=== PATIENT | female | born 1985 | race African-American/Black ===

== ENCOUNTER 2016-05-17 06:45 | Emergency (ER) | payer MEDICAID ==
[2016-05-17 07:08] VITALS: PULSE 72; TEMP 97.7; BMI 31.5
--- NOTE | 2016-05-17 07:53 | EDPRACDOC ---
- General Information Chief Complaint: Chest Wall Pain Stated Complaint: RT SIDE PAIN WHEN BREATHING Time Seen by Provider: 05/17/16 07:42 Information Source: Patient Mode of Arrival: Ambulance Home Medications: Home Medications No Home Medications 05/17/16 Allergies/Adverse Reactions: Allergies Allergy/AdvReac Type Severity Reaction Status Date / Time No Known Allergies Allergy Verified 05/17/16 07:09 - History of Present Illness Onset: yestrday HPI: PT PRESENTS WITH BILATERAL CHEST WALL PAIN WORSE WITH DEEP INSPIRATION OR PALPATION. Chest Pain Location: Reports: Right Chest, Left Chest. Denies: Substernal Symptoms Occur: Reports: At Rest Pain Description: Reports: Sharp Pain Severity: Moderate Pain Worsens With: Reports: Breathing Pain Improves With: Reports: Position Associated Signs and Symptoms: Reports: SOB. Denies: Palpitations, Abdominal Pain, Nausea, Vomiting ED Past Medical History - History Reviewed Yes Nurses notes reviewed and agree except as marked No Past Medical History: Yes Patient has no past medical history - Patient Medical History Psychological History: Denies: Depression Surgical History: Denies: Hysterectomy - Social Medical History Smoking Status: Heavy tobacco smoker (5 or more cigarettes/day or daily pipe/ cigar) Lives With: Significant Other Lives In: Home EDM Review of Systems - Review of Systems ROS Negative Except as Marked: Yes All systems reviewed and were negative except as marked Constitutional: negative: Fever Respiratory: Cough, Shortness of Breath Cardiovascular: Chest Pain (BILATERAL OUTER CHEST WALL) - Physical Exam Constitutional: Alert Oriented to: Time, Person, Place Last recorded Vital Signs: Last Vital Signs Temp 97.7 F 05/17/16 07:04 Pulse 72 05/17/16 07:04 Resp 18 05/17/16 07:04 BP 119/72 05/17/16 07:04 Pulse Ox 99 05/17/16 07:04 Oxygen Pulse Oxygen Saturation 99 O2 Device Oxygen Flow Rate Fraction of Inspired Oxygen ( FIO2) - HEENT Head: negative: Deformity, Laceration Eye Exam: negative: Conjunctival Injection, Pale Conjunctiva Oropharynx: negative: Membranes Dry Nose: negative: Congestion, Discharge Neck: negative: Limited ROM - Respiratory/Cardiovascular Respiratory: Normal - CTA. negative: Accessory Muscle Use, Diminished, Tachypnea Cardiovascular: negative: Bradycardia, Tachycardia, Irregular - GI Auscultation: Normal Palpation: Normal Tenderness: Non tender - Musculoskeletal Extremities: Radial Pulse (PALPABLE) - Integumentary Skin: Warm, Dry. negative: Rash - Neurologic Memory Impaired: Normal Motor Function: Normal Mood Description: Anxious Thought: Coherent Perception: Normal ED Chest Pain Exam - Respiratory/Cardiovascular Chest Palpation: Tender - Action Patient received Aspirin within last 24 hours?: No ASA given in the ED: No - EKG EKG #1 EKG Time: 07:01 -: Yes EKG interpreted by me Rate: bpm: 70 [place]: Normal Rhythm: NSR Block: None Hypertrophy: None ST: Normal Decision Time to Discharge: 09:09 - Departure Yes I personally saw and evaluated the patient. Disposition: LEFT WITHOUT CONTINUING TREATMENT Final Diagnosis: Chest wall pain Referrals: None,No Provider [Primary Care Provider] - One Week Prescriptions: No Action No Home Medications 0 NA DIR #0 info
[2016-05-17 08:37] VITALS: BP 118/71
--- NOTE | 2016-05-17 08:38 | DIRPT ---
CLINICAL DATA: Chest pain. EXAM: CHEST 2 VIEW COMPARISON: 03/27/2016 . FINDINGS: Mediastinum hilar structures normal. Lungs are clear. Heart size normal. No pleural effusion or pneumothorax. IMPRESSION: No acute cardiopulmonary disease. Electronically Signed By: Suleman Calderón On: 05/17/2016 08:36
== END 2016-05-17 09:13 | disposition home or self-care (01) ==
LOC: ED 06:45
DX: R07.89 Other chest pain (principal)
CPT/HCPCS: 71020; 99283